=== PATIENT | male | born 1980 | race Caucasian/White ===

== ENCOUNTER 2018-08-12 08:52 | Emergency (ER) | payer OTHER ==
[2018-08-12 10:39] VITALS: BP 131/88
== END 2018-08-12 10:35 | disposition home or self-care (01) ==
LOC: ED 08:52
DX: M79.671 Pain in right foot (principal)

== ENCOUNTER 2020-07-08 19:51 | Emergency (ER) | payer OTHER ==
[~2020-07-08] VITALS: Ht 177.8 cm; Wt 127.0 kg
[2020-07-08 20:47] LABS: HEMATOCRIT 43.6 % (39.0-50.0); IMMATURE GRANULOCYTES 0.6 % (0.0-5.0); MEAN CELL VOLUME 85.7 fL CALC (80.0-100.0); MEAN CORPUSCULAR HGB 27.5 pG CALC (26.0-32.0); MEAN CORPUSCULAR HGB CONC 32.1 g/dL CAL (32.0-36.0); NEUT# 4.13 thou/uL (1.82-7.42); RED BLOOD COUNT 5.09 mill/uL (4.70-6.10); RED CELL DISTRI WIDTH 13.1 % (11.5-15.5)
[2020-07-08 21:19] LABS: ALKALINE PHOSPHATASE 81 u/l (38-126); ANION GAP 13 (6-22 (CALC)); BILIRUBIN, TOTAL 0.5 mg/dL (0.0-1.4); BUN 14 mg/dL (9-20); BUN/CREATININE RATIO 13 (12-20 (CALC)); CARBON DIOXIDE 24 mmol/l (22-30); CHLORIDE 105 mmol/l (95-108); GFR > 60 ML/MIN (>=60 (CALC)); GFR FOR AFR.AMER. > 60 ML/MIN (>=60 (CALC)); POTASSIUM 3.8 mmol/l (3.5-5.1); SGOT/AST 21 u/l (17-59); SODIUM 138 mmol/l (137-146); TOTAL PROTEIN 7.2 g/dL (6.3-8.2)
[2020-07-08] MEDS ORDERED: TRAMADOL HYDROC50 MG PO (21:40)
[2020-07-08 22:10] VITALS: BP 120/2
== END 2020-07-08 22:15 | disposition home or self-care (01) ==
LOC: ED 19:51
PROVIDERS: Emergency Medicine
DX: M79.671 Pain in right foot (principal)

== ENCOUNTER 2023-01-30 17:39 | Emergency (ER) | payer OTHER ==
[2023-01-30] VITALS (7 sets, daily range): BP systolic 96–131; BP diastolic 63–88
[~2023-01-30] VITALS: Ht 177.8 cm; Wt 132.6 kg
[~2023-01-30 17:39] MED LIST: TRAMADOL HYDROC50 MG PO
[2023-01-30] MEDS ORDERED: WELLBUTRIN XL300 MG PO (18:07)
[2023-01-30 18:34] LABS: BASO% 0.2 % (0-3); EOS% 0.8 % (0-8); HEMATOCRIT 50.6 % (39.0-50.0); HEMOGLOBIN 16.6 g/dl (14.0-18.0); IMMATURE GRANULOCYTES 0.3 % (0.0-5.0); LYMPH% 7.5 % (15-41); MEAN CELL VOLUME 85.6 fL CALC (80.0-100.0); MEAN CORPUSCULAR HGB 28.1 pG CALC (26.0-32.0); MEAN CORPUSCULAR HGB CONC 32.8 g/dL CAL (32.0-36.0); MONO% 3.1 % (2-13); NEUT# 9.99 thou/uL (1.82-7.42); NEUT% 88.1 % (42-76); RED BLOOD COUNT 5.91 mill/uL (4.70-6.10); RED CELL DISTRI WIDTH 13.4 % (11.5-15.5)
[2023-01-30 18:47] LABS: ALBUMIN 4.5 g/dL (3.2-5.0); ALKALINE PHOSPHATASE 88 u/l (38-126); ANION GAP 17 (6-22 (CALC)); BUN 20 mg/dL (9-20); BUN/CREATININE RATIO 19 (12-20 (CALC)); CARBON DIOXIDE 20 mmol/l (22-30); CHLORIDE 109 mmol/l (95-108); CREATININE 1.1 mg/dL (0.7-1.3); GFR FOR AFR.AMER. > 60 ML/MIN (>=60 (CALC)); GFR OTHER RACES > 60 ML/MIN (>=60 (CALC)); LIPASE 83 u/l (23-300); POTASSIUM 4.1 mmol/l (3.5-5.1); SGOT/AST 31 u/l (17-59); SODIUM 141 mmol/l (137-146); TOTAL PROTEIN 8.5 g/dL (6.3-8.2)
[2023-01-30 18:49] LABS: BILIRUBIN, TOTAL 0.9 mg/dL (0.2-1.3)
[2023-01-30 20:25] LABS: URINE BLOOD DIPSTICK Negative (NEGATIVE); URINE GLUCOSE - DIPSTICK Negative (NEGATIVE); URINE KETONE Trace mg/dL (NEGATIVE); URINE LEUK ESTERASE Negative (NEGATIVE); URINE NITRITE - DIPSTICK Negative (Negative); URINE PH 5.5 (4.5-8.0); URINE PROTEIN - DIPSTICK >=300 mg/dL (NEG-TRACE); URINE SPECIFIC GRAVITY >=1.030; URINE UROBILINOGEN - DIPSTICK 0.2 E.U./dL (0.2)
[2023-01-30 20:32] LABS: URINE COLOR Yellow
[2023-01-30 20:40] LABS: URINE MUCUS FEW hpf (NONE-FEW); URINE RBC 0-2 RBC/hpf (0-5); URINE WBC 0-2 WBC/hpf (0-5)
[2023-01-30] MEDS ORDERED: ONDANSETRON4 MG PO (20:49)
[2023-01-30] MEDS ORDERED: LOMOTIL2.5 MG PO (20:49)
[2023-01-30] MEDS ORDERED: CIPROFLOXACN500 MG PO (20:49)
== END 2023-01-30 21:08 | disposition home or self-care (01) ==
LOC: ED 17:39
PROVIDERS: Family Medicine
DX: K52.9 Noninfective gastroenteritis and colitis, unspecified (principal); E66.9 Obesity, unspecified
CPT/HCPCS: Q9967

== ENCOUNTER 2023-06-16 19:40 | Emergency (ER) | payer OTHER ==
[~2023-06-16] VITALS: Ht 177.8 cm; Wt 137.0 kg
[~2023-06-16 19:40] MED LIST changes: +CIPROFLOXACN500 MG PO; +LOMOTIL2.5 MG PO; +ONDANSETRON4 MG PO; +WELLBUTRIN XL300 MG PO
[2023-06-16] MEDS ORDERED: VIT B-COMPLX100 MG IJ (20:28)
[2023-06-16] MEDS ORDERED: MEDDOSEPAK PO (21:47)
[2023-06-16] MEDS ORDERED: TRAMADOL HYDROC50 M1 PO (21:47)
[2023-06-16 22:24] VITALS: BP 129/87
== END 2023-06-16 22:24 | disposition home or self-care (01) ==
LOC: ED 19:40
DX: M77.8 Other enthesopathies, not elsewhere classified (principal)

== ENCOUNTER 2023-12-24 09:14 | Emergency (ER) | payer OTHER ==
[~2023-12-24] VITALS: Ht 177.8 cm; Wt 122.0 kg
[2023-12-24] VITALS (9 sets, daily range): BP systolic 105–148; BP diastolic 65–91
[~2023-12-24 09:14] MED LIST changes: +MEDDOSEPAK PO; +TRAMADOL HYDROC50 M1 PO; +VIT B-COMPLX100 MG IJ
[2023-12-24] MEDS ORDERED: ALUM & MAG HYDROX-SIMETHICONE 30 ML PO ONE (09:30)
[2023-12-24] MEDS ORDERED: LIDOCAINE VISCOUS 2% 15 ML UDC PO ONE (09:30)
[2023-12-24 09:34] LABS: BASO% 0.2 % (0-3); EOS% 1.3 % (0-8); HEMATOCRIT 46.2 % (39.0-50.0); HEMOGLOBIN 15.1 g/dl (14.0-18.0); IMMATURE GRANULOCYTES 0.5 % (0.0-5.0); LYMPH% 21.9 % (15-41); MEAN CELL VOLUME 84.6 fL CALC (80.0-100.0); MEAN CORPUSCULAR HGB 27.7 pG CALC (26.0-32.0); MEAN CORPUSCULAR HGB CONC 32.7 g/dL CAL (32.0-36.0); MONO% 4.8 % (2-13); NEUT# 4.42 thou/uL (1.82-7.42); NEUT% 71.3 % (42-76); RED BLOOD COUNT 5.46 mill/uL (4.70-6.10)
[2023-12-24] MEDS ORDERED: Pantoprazole Sodium 40 MG VIAL (Protonix) IV ONE (09:40)
[2023-12-24 09:45] LABS: ALBUMIN 4.3 g/dL (3.2-5.0); ALKALINE PHOSPHATASE 73 u/l (38-126); ANION GAP 11 (6-22 (CALC)); BILIRUBIN, TOTAL 0.7 mg/dL (0.2-1.3); BUN 17 mg/dL (9-20); BUN/CREATININE RATIO 24 (12-20 (CALC)); CARBON DIOXIDE 24 mmol/l (22-30); CHLORIDE 111 mmol/l (95-108); CREATININE 0.7 mg/dL (0.7-1.3); ESTIMATED GFR 117 ML/MIN (>=90 (CALC)); LIPASE 92 u/l (23-300); POTASSIUM 4.1 mmol/l (3.5-5.1); SGOT/AST 31 u/l (17-59); SODIUM 142 mmol/l (137-146); TOTAL PROTEIN 7.6 g/dL (6.3-8.2)
[2023-12-24] MEDS ORDERED: MORPHINE SULFATE 4 MG/ML VIAL IV ONE (10:10)
[2023-12-24] MEDS ORDERED: ONDANSETRON HCl 4 MG/2 ML SDV IV ONE (10:50)
[2023-12-24] MEDS ORDERED: PROTONIX40 M2 PO (13:03)
[2023-12-24] MEDS ORDERED: ZOFRAN4 MG/TAB PO (13:03)
== END 2023-12-24 13:15 | disposition home or self-care (01) ==
LOC: ED 09:14
PROVIDERS: Family Medicine
DX: R10.33 Periumbilical pain (principal); R10.12 Left upper quadrant pain; E66.9 Obesity, unspecified
CPT/HCPCS: J2470; Q9967

== ENCOUNTER 2024-08-15 10:06 | Emergency (ER) | payer OTHER ==
[~2024-08-15] VITALS: Ht 177.8 cm; Wt 133.0 kg
[2024-08-15] VITALS (31 sets, daily range): BP systolic 104–136; BP diastolic 70–94
[~2024-08-15 10:06] MED LIST changes: +PROTONIX40 M2 PO; +ZOFRAN4 MG/TAB PO
[2024-08-15] MEDS ORDERED: LIDOCAINE VISCOUS 2% 15 ML UDC PO ONE (10:50)
[2024-08-15] MEDS ORDERED: ALUM & MAG HYDROX-SIMETHICONE 30 ML PO ONE (10:50)
[2024-08-15 11:06] LABS: BASO% 0.3 % (0-3); EOS% 1.6 % (0-8); HEMATOCRIT 47.5 % (39.0-50.0); HEMOGLOBIN 15.4 g/dl (14.0-18.0); IMMATURE GRANULOCYTES 0.5 % (0.0-5.0); LYMPH% 27.6 % (15-41); MEAN CELL VOLUME 84.7 fL CALC (80.0-100.0); MEAN CORPUSCULAR HGB 27.5 pG CALC (26.0-32.0); MEAN CORPUSCULAR HGB CONC 32.4 g/dL CAL (32.0-36.0); MONO% 5.4 % (2-13); NEUT# 4.07 thou/uL (1.82-7.42); NEUT% 64.6 % (42-76); RED BLOOD COUNT 5.61 mill/uL (4.70-6.10); RED CELL DISTRI WIDTH 12.9 % (11.5-15.5)
[2024-08-15 11:16] LABS: ALBUMIN 4.2 g/dL (3.2-5.0); CREATININE 0.8 mg/dL (0.7-1.3); POTASSIUM 4.2 mmol/l (3.5-5.1)
[2024-08-15] MEDS ORDERED: MORPHINE SULFATE 4 MG/ML VIAL IV ONE (11:30)
[2024-08-15] MEDS ORDERED: NITROGLYCERIN 0.4 MG/TAB SL ONE ×2 (11:55→12:20)
[2024-08-15] MEDS ORDERED: SODIUM CHLORIDE 0.9% 1,000 ML IV ONE (11:55)
[2024-08-15] MEDS ORDERED: Heparin SODIUM (Porcine) 5,000 UNITS/ML SDV IV ONE (11:55)
[2024-08-15] MEDS ORDERED: CLOPIDOGREL BISULFATE 75 MG/TAB TAB PO ONE (11:55)
[2024-08-15] MEDS ORDERED: Heparin SODIUM (Porcine) 500 ML IV ONE (11:55)
[2024-08-15 12:21] LABS: PROTHROMBIN TIME 10.4 SECONDS (9.0-12.5)
== END 2024-08-15 14:17 | disposition short-term general hospital (02) ==
LOC: ED
PROVIDERS: Family Medicine
DX: I21.4 Non-ST elevation (NSTEMI) myocardial infarction (principal); R00.0 Tachycardia, unspecified; Z88.8 Allergy status to other drugs, medicaments and biological substances
CPT/HCPCS: J1644